=== PATIENT | female | born 1990 | race Hispanic/Latino ===

== ENCOUNTER 2020-10-18 09:25 | Emergency (ER) | payer MEDICARE ==
[~2020-10-18] VITALS: Ht 162.6 cm; Wt 86.2 kg
[2020-10-18] MEDS ORDERED: HYDROCODONE/APAP 10MG-325MG TAB PO ONE (09:45)
[2020-10-18] MEDS ORDERED: AUGMENTIN 875-1 EACH PO ×2 (09:46→10:06)
[2020-10-18] MEDS ORDERED: PERIDEX473 M1 PO (09:46)
[2020-10-18] MEDS ORDERED: ULTRAM50 MG PO ×2 (09:46→10:06)
== END 2020-10-18 10:05 | disposition home or self-care (01) ==
LOC: ER 09:39
DX: K04.7 Periapical abscess without sinus (principal); K02.9 Dental caries, unspecified; I10 Essential (primary) hypertension; E11.9 Type 2 diabetes mellitus without complications; E78.5 Hyperlipidemia, unspecified
CPT/HCPCS: 99283

== ENCOUNTER 2020-12-14 17:17 | Emergency (ER) | payer MEDICARE ==
[~2020-12-14] VITALS: Ht 165.1 cm; Wt 106.6 kg
[~2020-12-14 17:17] MED LIST: AUGMENTIN 875-1 EACH PO; PERIDEX473 M1 PO; ULTRAM50 MG PO
[2020-12-14] MEDS ORDERED: SODIUM CHLORIDE 0.9% 1000ML 1,000 ML IV STA (17:25)
[2020-12-14] MEDS ORDERED: ONDANSETRON HCL INJ 2MG/ML 2ML 2 MG/ML VIAL IV PRN (17:30)
[2020-12-14 18:02] LABS: BASOPHILS % 0.3 % (0.0-1.0); HEMATOCRIT 34.1 % (34.2-44.1); HEMOGLOBIN 11.6 g/dL (12.0-16.0); LYMPHOCYTES # (AUTO) 2.6 (1.0-3.2); LYMPHOCYTES % 22.3 % (18.0-39.1); MEAN CORPUSCULAR HEMOGLOBIN 27.8 pg (28-32); MEAN CORPUSCULAR VOLUME 81.8 fL (81-99); MONOCYTES # (AUTO) 0.5 (0.2-0.8); MONOCYTES % 4.4 % (4.4-11.3); NEUTROPHILS # (AUTO) 8.4 (2.1-6.9); NEUTROPHILS % 72.6 % (38.7-80.0); PLATELET COUNT 335 x10e3/uL (140-360); RED BLOOD COUNT 4.17 x10e6/uL (3.6-5.1); RED CELL DISTRIBUTION WIDTH 12.8 % (11.7-14.4)
[2020-12-14 18:04] LABS: CLARITY,URINE HAZY (CLEAR); COLOR,URINE YELLOW (YELLOW); LEUKOCYTE ESTERASE ,URINE NEGATIVE (NEGATIVE); NITRITE,URINE NEGATIVE (NEGATIVE)
[2020-12-14 18:05] LABS: KETONES,URINE NEGATIVE (NEGATIVE); PROTEIN,URINE DIPSTICK >=300 (NEGATIVE); URINE UROBILINOGEN 0.2 mg/dL (0.2 - 1)
[2020-12-14 18:11] LABS: ALBUMIN 2.7 g/dL (3.5-5.0); ALBUMIN/GLOBULIN RATIO 0.6 (0.8-2.0); ANION GAP 16.2 mmol/L (8-16); CALCIUM 8.1 mg/dL (8.4-10.2); CREATININE, SERUM 2.7 mg/dL (0.57-1.11); POTASSIUM 4.2 mmol/L (3.5-5.1)
[2020-12-14 18:13] LABS: BACTERIA,URINE FEW /HPF; EPITHELIAL CELLS,URINE FEW /LPF
[2020-12-14 18:14] LABS: AMORPHOUS SEDIMENT,URINE FEW (FEW); HYALINE CASTS 0-1 (0-1); MUCUS,URINE FEW (RARE)
[2020-12-14] MEDS ORDERED: LACTATED RINGER'S 1,000 ML INJ ONE (18:30)
[2020-12-14] MEDS ORDERED: INSULIN REGULAR, HUMAN 100 UNIT/1 ML 3ML VIAL IV ONE (18:30)
[2020-12-14] MEDS ORDERED: METOCLOPRAMIDE HCL 10 MG/2ML VIAL IV ONE (18:45)
[2020-12-14] MEDS ORDERED: ZUPLENZ4 MG PO (19:23)
[2020-12-14 19:56] VITALS: BP 164/79
== END 2020-12-14 19:40 | disposition home or self-care (01) ==
LOC: ER 17:25
DX: R11.2 Nausea with vomiting, unspecified (principal); R10.84 Generalized abdominal pain; E11.65 Type 2 diabetes mellitus with hyperglycemia; I12.9 Hypertensive chronic kidney disease with stage 1 through stage 4 chronic kidney disease, or unspecified chronic kidney disease; E11.22 Type 2 diabetes mellitus with diabetic chronic kidney disease; N18.9 Chronic kidney disease, unspecified; E78.5 Hyperlipidemia, unspecified
CPT/HCPCS: 36415; 80053; 81001; 82948; 83690; 84702; 85025; 99284; J1817; J2405; J7030; J7121

== ENCOUNTER 2021-01-26 10:38 | Inpatient (IN) | payer MEDICARE ==
[~2021-01-26] VITALS: Ht 167.6 cm; Wt 106.6 kg
[~2021-01-26 10:38] MED LIST changes: +ZUPLENZ4 MG PO
[2021-01-26] MEDS ORDERED: MORPHINE SULFATE INJ 2 MG/ML SYR IV STA (10:55)
[2021-01-26] MEDS ORDERED: SODIUM CHLORIDE 0.9% 1000ML 1,000 ML IV STA (10:55)
[2021-01-26] MEDS ORDERED: KETOROLAC TROMETHAMINE 30 MG/ML VIAL IV STA (10:55)
[2021-01-26] MEDS ORDERED: ONDANSETRON HCL INJ 2MG/ML 2ML 2 MG/ML VIAL IV STA (10:55)
[2021-01-26] MEDS ORDERED: VANCOMYCIN 1GM/NS 250 ML 250 ML IV ONE (11:00)
[2021-01-26] MEDS ORDERED: PIPERACILLIN/TAZOBACTAM 2.25 GM in SODIUM CHLORIDE 0.9% 50ML 50 ML IV ONE (11:06)
[2021-01-26 11:12] LABS: BASOPHILS # (AUTO) 0.1 (0.0-0.1); BASOPHILS % 0.3 % (0.0-1.0); EOSINOPHILS # (AUTO) 0.1 (0.0-0.4); EOSINOPHILS % 0.8 % (0.0-6.0); HEMATOCRIT 37.8 % (34.2-44.1); HEMOGLOBIN 12.4 g/dL (12.0-16.0); LYMPHOCYTES # (AUTO) 2.3 (1.0-3.2); MEAN CORPUSCULAR HEMOGLOBIN 27.9 pg (28-32); MEAN CORPUSCULAR HGB CONC 32.8 g/dL (31-35); MEAN CORPUSCULAR VOLUME 85.1 fL (81-99); MONOCYTES % 6.5 % (4.4-11.3); NEUTROPHILS # (AUTO) 11.6 (2.1-6.9); NEUTROPHILS % 76.9 % (38.7-80.0); PLATELET COUNT 401 x10e3/uL (140-360); RED BLOOD COUNT 4.44 x10e6/uL (3.6-5.1); RED CELL DISTRIBUTION WIDTH 12.6 % (11.7-14.4)
[2021-01-26 11:25] LABS: INR 0.95; PARTIAL THROMBOPLASTIN TIME 31.6 seconds (23.8-35.5); PROTHROMBIN TIME 13.3 seconds (11.9-14.5)
[2021-01-26 11:32] LABS: ALANINE AMINOTRANSFERASE 9 IU/L (0-55); ALBUMIN 2.5 g/dL (3.5-5.0); ALBUMIN/GLOBULIN RATIO 0.5 (0.8-2.0); ALKALINE PHOSPHATASE 91 IU/L (40-150); ANION GAP 15.8 mmol/L (8-16); BLOOD UREA NITROGEN 24 mg/dL (7-26); BUN/CREATININE RATIO 9 (6-25); CALCIUM 8.1 mg/dL (8.4-10.2); CARBON DIOXIDE 22 mmol/L (22-29); CHLORIDE 106 mmol/L (98-107); CREATININE, SERUM 2.69 mg/dL (0.57-1.11); EST GLOMERULAR FILTRATION RATE 21 ML/MIN (60-); GLUCOSE 148 mg/dL (74-118); MAGNESIUM 1.8 MG/DL (1.3-2.1); POTASSIUM 4.8 mmol/L (3.5-5.1); SODIUM 139 mmol/L (136-145)
[2021-01-26] MEDS ORDERED: VANCOMYCIN 1GM/NS 250 ML 250 ML ONE (11:51)
[2021-01-26] MEDS ORDERED: ATORVASTATIN CA10 MG PO (12:14)
[2021-01-26] MEDS ORDERED: VASCEPA1 GM PO (12:14)
[2021-01-26] MEDS ORDERED: SERTRALINE HCL100 MG PO (12:14)
[2021-01-26] MEDS ORDERED: ISOSORBIDE MONO30 MG PO (12:14)
[2021-01-26] MEDS ORDERED: VICTOZA 2-0.6 MG/0.1 (12:14)
[2021-01-26] MEDS ORDERED: ONDANSETRON ODT4 MG PO (12:14)
[2021-01-26] MEDS ORDERED: AZELASTINE HCL6 ML OD (12:14)
[2021-01-26] MEDS ORDERED: HYDRALAZINE HC100 MG PO (12:14)
[2021-01-26] MEDS ORDERED: CARVEDILOL6.25 MG PO (12:14)
[2021-01-26] MEDS ORDERED: DEXTROSE 50% SYRINGE 50 ML IV PRN (13:30)
[2021-01-26] MEDS ORDERED: CLONIDINE HCL 0.1 MG TAB ONE (13:48)
[2021-01-26] MEDS: SODIUM CHLORIDE 0.9% 1000ML 1,000 ML IV SCH (13:49)
[2021-01-26 13:58] VITALS: BP 155/111
[2021-01-26] MEDS ORDERED: CLONIDINE HCL 0.1 MG TAB PO ONE (14:00)
[2021-01-26 14:10] VITALS: BP 181/107
[2021-01-26 14:19] VITALS: BP 181/107
[2021-01-26] MEDS: INSULIN LISPRO 100 UNIT/1 ML 3ML VIAL SQ SCH ×2 (17:39→21:00)
[2021-01-26] MEDS ORDERED: PIPERACILLIN/TAZO 2.25 GM 50 ML IV SCH (18:00)
[2021-01-26] MEDS ORDERED: SODIUM CHLORIDE 0.9% 50ML 50 ML ONE (18:37)
[2021-01-26] MEDS: MORPHINE SULFATE INJ 4 MG/ML INJ 1ML IV PRN (19:36)
[2021-01-26] MEDS: ONDANSETRON HCL INJ 2MG/ML 2ML 2 MG/ML VIAL IV PRN (19:38)
[2021-01-26 20:01] VITALS: BP 130/71
[2021-01-26 20:30] VITALS: BP 130/71
[2021-01-26] MEDS ORDERED: PIPERACILLIN/TAZOBACTAM 2.25 GM in SODIUM CHLORIDE 0.9% 50ML 50 ML IV STA (22:52)
[2021-01-27] VITALS (8 sets, daily range): BP systolic 120–176; BP diastolic 58–95
[2021-01-27] MEDS: SODIUM CHLORIDE 0.9% 1000ML 1,000 ML IV SCH ×3 (02:50→22:17)
[2021-01-27] MEDS: MORPHINE SULFATE INJ 4 MG/ML INJ 1ML IV PRN ×5 (04:05→22:17)
[2021-01-27] MEDS: ONDANSETRON HCL INJ 2MG/ML 2ML 2 MG/ML VIAL IV PRN ×5 (04:06→22:17)
[2021-01-27] MEDS: PIPERACILLIN/TAZOBACTAM 2.25 GM in SODIUM CHLORIDE 0.9% 50ML 50 ML IV SCH ×6 (06:00→23:20)
[2021-01-27 06:14] LABS: BASOPHILS % 0.2 % (0.0-1.0); EOSINOPHILS # (AUTO) 0.2 (0.0-0.4); EOSINOPHILS % 1.1 % (0.0-6.0); HEMOGLOBIN 9.9 g/dL (12.0-16.0); LYMPHOCYTES # (AUTO) 2.1 (1.0-3.2); LYMPHOCYTES % 13.2 % (18.0-39.1); MEAN CORPUSCULAR HEMOGLOBIN 28.6 pg (28-32); MEAN CORPUSCULAR HGB CONC 34.1 g/dL (31-35); MEAN CORPUSCULAR VOLUME 83.8 fL (81-99); MONOCYTES # (AUTO) 1.2 (0.2-0.8); MONOCYTES % 7.2 % (4.4-11.3); NEUTROPHILS # (AUTO) 12.5 (2.1-6.9); NEUTROPHILS % 77.7 % (38.7-80.0); PLATELET COUNT 296 x10e3/uL (140-360); RED BLOOD COUNT 3.46 x10e6/uL (3.6-5.1); RED CELL DISTRIBUTION WIDTH 12.3 % (11.7-14.4)
[2021-01-27 06:33] LABS: ALBUMIN 1.9 g/dL (3.5-5.0); ALBUMIN/GLOBULIN RATIO 0.5 (0.8-2.0); ANION GAP 11.7 mmol/L (8-16); CALCIUM 7.1 mg/dL (8.4-10.2); CREATININE, SERUM 2.73 mg/dL (0.57-1.11); POTASSIUM 4.7 mmol/L (3.5-5.1)
[2021-01-27] MEDS ORDERED: ONDANSETRON HCL INJ 2MG/ML 2ML 2 MG/ML VIAL IV PRN (09:30)
[2021-01-27] MEDS ORDERED: HYDROCODONE/APAP 10MG-325MG TAB PO PRN (09:30)
[2021-01-27] MEDS ORDERED: HYDRALAZINE HCL 20 MG/ML VIAL IV PRN (09:30)
[2021-01-27] MEDS ORDERED: VANCOMYCIN 1GM/NS 250 ML 250 ML IV ONE (09:30)
[2021-01-27] MEDS: INSULIN LISPRO 100 UNIT/1 ML 3ML VIAL SQ SCH ×4 (09:48→21:13)
[2021-01-27] MEDS: ISOSORBIDE MONONITRATE 30 MG TAB CR PO SCH (10:57)
[2021-01-27] MEDS: HYDRALAZINE HCL 100 MG TABLET PO SCH ×2 (10:58→17:18)
[2021-01-27] MEDS ORDERED: ONDANSETRON HCL INJ 2MG/ML 2ML 2 MG/ML VIAL ONE (13:57)
[2021-01-27] MEDS ORDERED: POVIDONE IODINE 0.05% 0.05 % ML PO ONE (13:57)
[2021-01-27] MEDS ORDERED: PROPOFOL IV EMULSION 10 MG/ML 20 ML VIAL ONE (13:57)
[2021-01-27] MEDS ORDERED: SEVOFLURANE INHAL SOLN 250 ML PEN BTL ONE (13:57)
[2021-01-27] MEDS ORDERED: FENTANYL CITRATE/PF 100MCG/2 ML INJ ONE (14:15)
[2021-01-27] MEDS ORDERED: BUPIVACAINE HCL 0.5% INJ 30 ML VIAL INJ ONE (16:22)
[2021-01-27] MEDS: CARVEDILOL 3.125 MG TAB PO SCH (17:22)
[2021-01-27] MEDS ORDERED: ACETAMINOPHEN 325 MG TAB PO PRN (20:45)
[2021-01-27] MEDS: ATORVASTATIN 10 MG TAB PO SCH (21:08)
[2021-01-28] VITALS (8 sets, daily range): BP systolic 117–182; BP diastolic 60–93
[2021-01-28] MEDS: HYDRALAZINE HCL 100 MG TABLET PO SCH ×3 (01:42→17:20)
[2021-01-28] MEDS: PIPERACILLIN/TAZOBACTAM 2.25 GM in SODIUM CHLORIDE 0.9% 50ML 50 ML IV SCH ×4 (05:24→23:15)
[2021-01-28 06:19] LABS: BASOPHILS % 0.3 % (0.0-1.0); EOSINOPHILS # (AUTO) 0.2 (0.0-0.4); EOSINOPHILS % 1.3 % (0.0-6.0); HEMOGLOBIN 10.1 g/dL (12.0-16.0); LYMPHOCYTES # (AUTO) 2.3 (1.0-3.2); LYMPHOCYTES % 19.2 % (18.0-39.1); MEAN CORPUSCULAR HEMOGLOBIN 28.5 pg (28-32); MEAN CORPUSCULAR HGB CONC 33.7 g/dL (31-35); MEAN CORPUSCULAR VOLUME 84.5 fL (81-99); MONOCYTES # (AUTO) 0.9 (0.2-0.8); MONOCYTES % 7.7 % (4.4-11.3); NEUTROPHILS # (AUTO) 8.6 (2.1-6.9); NEUTROPHILS % 71.2 % (38.7-80.0); PLATELET COUNT 274 x10e3/uL (140-360); RED BLOOD COUNT 3.55 x10e6/uL (3.6-5.1); RED CELL DISTRIBUTION WIDTH 12.2 % (11.7-14.4)
[2021-01-28 06:45] LABS: ANION GAP 13.7 mmol/L (8-16); CALCIUM 7.4 mg/dL (8.4-10.2); CREATININE, SERUM 2.72 mg/dL (0.57-1.11); POTASSIUM 4.7 mmol/L (3.5-5.1)
[2021-01-28] MEDS: AZELASTINE HCL(OPTH) 6 ML BOTTLE OP SCH ×2 (09:00→17:27)
[2021-01-28] MEDS: ISOSORBIDE MONONITRATE 30 MG TAB CR PO SCH (09:39)
[2021-01-28] MEDS: SERTRALINE HCL 100 MG TAB PO SCH (09:39)
[2021-01-28] MEDS: CARVEDILOL 3.125 MG TAB PO SCH ×2 (09:40→17:21)
[2021-01-28] MEDS ORDERED: VANCOMYCIN 1GM/NS 250 ML 250 ML IV ONE (09:45)
[2021-01-28] MEDS: INSULIN LISPRO 100 UNIT/1 ML 3ML VIAL SQ SCH ×4 (09:45→21:56)
[2021-01-28] MEDS: MORPHINE SULFATE INJ 4 MG/ML INJ 1ML IV PRN ×2 (09:50→18:03)
[2021-01-28] MEDS: ONDANSETRON HCL INJ 2MG/ML 2ML 2 MG/ML VIAL IV PRN (09:50)
[2021-01-28] MEDS: ATORVASTATIN 10 MG TAB PO SCH (21:25)
[2021-01-29] VITALS: BP 142/82
[2021-01-29] MEDS: HYDRALAZINE HCL 100 MG TABLET PO SCH (01:32)
[2021-01-29 04:00] VITALS: BP 137/64
[2021-01-29] MEDS: PIPERACILLIN/TAZOBACTAM 2.25 GM in SODIUM CHLORIDE 0.9% 50ML 50 ML IV SCH (05:10)
[2021-01-29 06:05] LABS: BASOPHILS % 0.3 % (0.0-1.0); EOSINOPHILS # (AUTO) 0.1 (0.0-0.4); EOSINOPHILS % 1.6 % (0.0-6.0); HEMATOCRIT 26.5 % (34.2-44.1); LYMPHOCYTES # (AUTO) 1.8 (1.0-3.2); MEAN CORPUSCULAR HEMOGLOBIN 28.1 pg (28-32); MEAN CORPUSCULAR VOLUME 82.8 fL (81-99); MONOCYTES # (AUTO) 0.7 (0.2-0.8); MONOCYTES % 7.7 % (4.4-11.3); NEUTROPHILS # (AUTO) 5.9 (2.1-6.9); NEUTROPHILS % 68.9 % (38.7-80.0); PLATELET COUNT 291 x10e3/uL (140-360); RED CELL DISTRIBUTION WIDTH 12.1 % (11.7-14.4)
[2021-01-29 06:25] LABS: ANION GAP 12.2 mmol/L (8-16); CALCIUM 7.4 mg/dL (8.4-10.2); CREATININE, SERUM 2.69 mg/dL (0.57-1.11); POTASSIUM 4.2 mmol/L (3.5-5.1)
[2021-01-29 07:52] VITALS: BP 135/66
[2021-01-29] MEDS: CARVEDILOL 3.125 MG TAB PO SCH (08:33)
[2021-01-29] MEDS: SERTRALINE HCL 100 MG TAB PO SCH (08:34)
[2021-01-29] MEDS: ISOSORBIDE MONONITRATE 30 MG TAB CR PO SCH (08:34)
[2021-01-29] MEDS: AZELASTINE HCL(OPTH) 6 ML BOTTLE OP SCH (08:37)
[2021-01-29 09:04] VITALS: BP 135/66
== END 2021-01-29 10:56 | disposition home or self-care (01) | DRG 580 ==
LOC: ER 10:52 → ERHOLD 13:16 → MED/SURG3 15:13
PROVIDERS: ADMIT Internal Medicine; ATTEND Internal Medicine
PROC: 0J980ZZ Drainage of Abdomen Subcutaneous Tissue and Fascia, Open Approach (ICD-10-PCS; principal; 2021-01-27 16:14)
DX: L02.211 Cutaneous abscess of abdominal wall (principal); N18.4 Chronic kidney disease, stage 4 (severe); E11.22 Type 2 diabetes mellitus with diabetic chronic kidney disease; Z20.822 Contact with and (suspected) exposure to COVID-19; I12.9 Hypertensive chronic kidney disease with stage 1 through stage 4 chronic kidney disease, or unspecified chronic kidney disease; E66.01 Morbid (severe) obesity due to excess calories; Z68.37 Body mass index [BMI] 37.0-37.9, adult
CPT/HCPCS: 36415; 74176; 80048; 80053; 80202; 82948; 83605; 83735; 84702; 85025; 85610; 85730; 87040; 87071; 87075; 87205; 96361; 99284; J0360; J1885; J2270; J2405; J2543; J3010; J3370; J7030; U0002

== ENCOUNTER 2021-03-25 23:02 | Observation (INO) | payer MEDICARE ==
[~2021-03-25] VITALS: Ht 165.1 cm; Wt 106.6 kg
[~2021-03-25 23:02] MED LIST changes: +ATORVASTATIN CA10 MG PO; +AZELASTINE HCL6 ML OD; +CARVEDILOL6.25 MG PO; +HYDRALAZINE HC100 MG PO; +ISOSORBIDE MONO30 MG PO; +ONDANSETRON ODT4 MG PO; +SERTRALINE HCL100 MG PO; +VASCEPA1 GM PO; +VICTOZA 2-0.6 MG/0.1
[2021-03-25] MEDS ORDERED: ONDANSETRON HCL INJ 2MG/ML 2ML 2 MG/ML VIAL IV STA (23:16)
[2021-03-25] MEDS ORDERED: SODIUM CHLORIDE 0.9% 1000ML 1,000 ML ONE (23:28)
[2021-03-25] MEDS ORDERED: ONDANSETRON HCL INJ 2MG/ML 2ML 2 MG/ML VIAL ONE (23:28)
[2021-03-25] MEDS ORDERED: SODIUM CHLORIDE 0.9% 1000ML 1,000 ML IV ONE (23:30)
[2021-03-25 23:37] LABS: BASOPHILS % 0.3 % (0.0-1.0); EOSINOPHILS % 0.3 % (0.0-6.0); HEMATOCRIT 37.6 % (34.2-44.1); HEMOGLOBIN 12.5 g/dL (12.0-16.0); LYMPHOCYTES # (AUTO) 1.9 (1.0-3.2); LYMPHOCYTES % 14.8 % (18.0-39.1); MEAN CORPUSCULAR HEMOGLOBIN 27.8 pg (28-32); MEAN CORPUSCULAR HGB CONC 33.2 g/dL (31-35); MEAN CORPUSCULAR VOLUME 83.7 fL (81-99); MONOCYTES # (AUTO) 0.5 (0.2-0.8); MONOCYTES % 3.7 % (4.4-11.3); NEUTROPHILS # (AUTO) 10.4 (2.1-6.9); NEUTROPHILS % 80.5 % (38.7-80.0); PLATELET COUNT 420 x10e3/uL (140-360); RED BLOOD COUNT 4.49 x10e6/uL (3.6-5.1); RED CELL DISTRIBUTION WIDTH 13.4 % (11.7-14.4)
[2021-03-25 23:50] LABS: ALBUMIN 3.4 g/dL (3.5-5.0); ALBUMIN/GLOBULIN RATIO 0.7 (0.8-2.0); ANION GAP 18.6 mmol/L (8-16); CREATININE, SERUM 2.92 mg/dL (0.57-1.11); POTASSIUM 4.6 mmol/L (3.5-5.1)
[2021-03-26] LABS: CALCIUM 9.1 mg/dL (8.4-10.2)
[2021-03-26 00:10] LABS: AMYLASE 104 U/L (25-125); LIPASE 46 U/L (8-78)
[2021-03-26 00:46] LABS: CLARITY,URINE CLEAR (CLEAR); COLOR,URINE YELLOW (YELLOW); KETONES,URINE 1+ (NEGATIVE); LEUKOCYTE ESTERASE ,URINE NEGATIVE (NEGATIVE); NITRITE,URINE NEGATIVE (NEGATIVE); PROTEIN,URINE DIPSTICK >=300 (NEGATIVE); URINE UROBILINOGEN 0.2 mg/dL (0.2 - 1)
[2021-03-26 00:54] LABS: BACTERIA,URINE MANY /HPF; EPITHELIAL CELLS,URINE MODERATE /LPF; WBC,URINE (MAN) 0-5 /HPF (0-5)
[2021-03-26] MEDS ORDERED: DEXTROSE 50% SYRINGE 50 ML IV PRN (01:00)
[2021-03-26] MEDS ORDERED: ONDANSETRON HCL INJ 2MG/ML 2ML 2 MG/ML VIAL IV PRN (01:00)
[2021-03-26] MEDS: SODIUM CHLORIDE 0.9% 1000ML 1,000 ML IV SCH ×2 (01:10→11:09)
[2021-03-26] MEDS ORDERED: HYDRALAZINE HCL 20 MG/ML VIAL ONE (01:33)
[2021-03-26] MEDS: HYDRALAZINE HCL 20 MG/ML VIAL IV PRN ×3 (01:35→08:45)
[2021-03-26] MEDS ORDERED: PROMETHAZINE HCL (IM) 25 MG/ML VIAL IM ONE ×2 (02:00)
[2021-03-26] MEDS: METOCLOPRAMIDE HCL 10 MG/2ML VIAL IV SCH ×2 (02:30→12:57)
[2021-03-26] MEDS ORDERED: HYDRALAZINE HCL 20 MG/ML VIAL IV STA (03:14)
[2021-03-26 03:42] VITALS: BP 194/71
[2021-03-26 04:00] VITALS: BP 194/71
[2021-03-26] MEDS: INSULIN REGULAR, HUMAN 100 UNIT/1 ML 3ML VIAL SQ SCH ×3 (07:30→16:07)
[2021-03-26 08:26] VITALS: BP 186/95
[2021-03-26 09:00] VITALS: BP 186/95
[2021-03-26 12:11] VITALS: BP 145/55
[2021-03-26 16:45] VITALS: BP 187/80
== END 2021-03-26 18:54 | disposition home or self-care (01) ==
LOC: ER 23:30 → ERHOLD 03-26 00:58 → MED/SURG2 03-26 03:47
PROVIDERS: ADMIT Internal Medicine; ATTEND Internal Medicine
DX: K52.9 Noninfective gastroenteritis and colitis, unspecified (principal); E11.22 Type 2 diabetes mellitus with diabetic chronic kidney disease; I12.9 Hypertensive chronic kidney disease with stage 1 through stage 4 chronic kidney disease, or unspecified chronic kidney disease; N18.30 Chronic kidney disease, stage 3 unspecified; E66.9 Obesity, unspecified; Z68.39 Body mass index [BMI] 39.0-39.9, adult; H54.8 Legal blindness, as defined in USA
CPT/HCPCS: 36415 ×2; 80053; 81001; 81025; 82150; 82948; 83690; 85025; 96360; 96361; 99284; G0378; J0360; J2405 ×2; J2550; J2765; J7030 ×2

== ENCOUNTER 2022-10-25 12:01 | Emergency (ER) | payer MEDICARE ==
[~2022-10-25] VITALS: Ht 165.1 cm; Wt 106.6 kg
[2022-10-25] MEDS ORDERED: HYDROCODONE/APAP 5MG-325MG TAB PO ONE (12:45)
[2022-10-25] MEDS ORDERED: LIDOCAINE HCL 1% LOCAL INJ 20 ML VIAL INJ ONE (12:45)
[2022-10-25] MEDS ORDERED: BACTRIM DS TAB1 EACH PO (13:11)
[2022-10-25] MEDS ORDERED: CEPHALEXIN500 MG PO (13:11)
== END 2022-10-25 13:26 | disposition home or self-care (01) ==
LOC: ER 12:08
DX: L02.214 Cutaneous abscess of groin (principal); E11.22 Type 2 diabetes mellitus with diabetic chronic kidney disease; I12.9 Hypertensive chronic kidney disease with stage 1 through stage 4 chronic kidney disease, or unspecified chronic kidney disease; N18.9 Chronic kidney disease, unspecified; H54.8 Legal blindness, as defined in USA
CPT/HCPCS: 10060; 99283; J2001

== ENCOUNTER 2025-01-26 13:12 | Inpatient (IN) | payer MEDICARE ==
[~2025-01-26] VITALS: Ht 167.6 cm; Wt 96.2 kg
[~2025-01-26 13:12] MED LIST changes: +BACTRIM DS TAB1 EACH PO; +CEPHALEXIN500 MG PO
[2025-01-26 13:53] LABS: BASOPHILS % 0.3 % (0.0-1.0); EOSINOPHILS # (AUTO) 0.1 (0.0-0.4); EOSINOPHILS % 0.8 % (0.0-6.0); HEMATOCRIT 38.5 % (34.2-44.1); LYMPHOCYTES # (AUTO) 1.7 (1.0-3.2); LYMPHOCYTES % 17.8 % (18.0-39.1); MEAN CORPUSCULAR HEMOGLOBIN 31.6 pg (28-32); MEAN CORPUSCULAR HGB CONC 33.8 g/dL (31-35); MEAN CORPUSCULAR VOLUME 93.4 fL (81-99); MONOCYTES # (AUTO) 0.4 (0.2-0.8); MONOCYTES % 4.1 % (4.4-11.3); NEUTROPHILS # (AUTO) 7.1 (2.1-6.9); NEUTROPHILS % 76.7 % (38.7-80.0); PLATELET COUNT 258 x10e3/uL (140-360); RED BLOOD COUNT 4.12 x10e6/uL (3.6-5.1); RED CELL DISTRIBUTION WIDTH 12.6 % (11.7-14.4); WHITE BLOOD COUNT 9.29 x10e3/uL (4.8-10.8)
[2025-01-26 14:10] LABS: INR 0.94; PROTHROMBIN TIME 13.2 seconds (11.9-14.5)
[2025-01-26 14:11] LABS: PARTIAL THROMBOPLASTIN TIME 28.7 seconds (23.8-35.5)
[2025-01-26 14:15] LABS: CLARITY,URINE CLOUDY (CLEAR); COLOR,URINE YELLOW (YELLOW)
[2025-01-26 14:16] LABS: BILIRUBIN,URINE NEGATIVE (NEGATIVE); GLUCOSE, URINE NEGATIVE (NEGATIVE); KETONES,URINE NEGATIVE (NEGATIVE); LEUKOCYTE ESTERASE ,URINE MODERATE (NEGATIVE); NITRITE,URINE NEGATIVE (NEGATIVE); PH,URINE 7 (5 - 7); PROTEIN,URINE DIPSTICK >=300 (NEGATIVE); URINE UROBILINOGEN 0.2 mg/dL (0.2 - 1)
[2025-01-26 14:18] LABS: ALANINE AMINOTRANSFERASE 16 IU/L (0-55); ALBUMIN 3.6 g/dL (3.5-5.0); ALBUMIN/GLOBULIN RATIO 0.8 (0.8-2.0); ALKALINE PHOSPHATASE 78 IU/L (40-150); BILIRUBIN,TOTAL 0.5 mg/dL (0.2-1.2); BLOOD UREA NITROGEN 41 mg/dL (7-26); BUN/CREATININE RATIO 9 (6-25); CALCIUM 8.9 mg/dL (8.4-10.2); CARBON DIOXIDE 18 mmol/L (22-29); CHLORIDE 109 mmol/L (98-107); CREATINE KINASE 36 IU/L (29-168); CREATININE, SERUM 4.73 mg/dL (0.57-1.11); EST GLOMERULAR FILTRATION RATE 12 ML/MIN (>=60); GLUCOSE 207 mg/dL (74-118); MAGNESIUM 1.8 MG/DL (1.3-2.1); SODIUM 136 mmol/L (136-145); TOTAL PROTEIN 8.1 g/dL (6.5-8.1)
[2025-01-26 14:23] LABS: TROPONIN I 0.003 ng/mL (0-0.300)
[2025-01-26 14:31] LABS: BACTERIA,URINE MANY /HPF; EPITHELIAL CELLS,URINE MANY /LPF; WBC,URINE (MAN) >50 /HPF (0-5)
[2025-01-26] MEDS: INSULIN REGULAR, HUMAN 100 UNIT/1 ML IV ONE (14:51)
[2025-01-26] MEDS: DEXTROSE 50% SYRINGE 50 ML IV STA (14:52)
[2025-01-26] MEDS: SODIUM BICARBONATE 8.4% INJ 50 ML SYR IV STA (14:52)
[2025-01-26] MEDS: CALCIUM GLUC 1 G/50 ML NACL 50 ML IV ONE (14:52)
[2025-01-26] MEDS ORDERED: ONDANSETRON HCL INJ 2MG/ML 2ML 2 MG/ML VIAL IV PRN (15:30)
[2025-01-26] MEDS: SOD POLYSTYRENE SULFONATE SUSP 15 GM/60 ML BTL PO ONE (15:45)
[2025-01-26] MEDS: CEFTRIAXONE 2 GM in SODIUM CHLORIDE 0.9% 100 ML IV ONE (15:45)
[2025-01-26 15:55] VITALS: PULSE 94; RESP 15; TEMP 98.6
[2025-01-26 16:15] VITALS: BP 151/91; PULSE 88; RESP 18; TEMP 98.6; O2SAT 100
[2025-01-26] MEDS ORDERED: DEXTROSE 50% SYRINGE 50 ML IV PRN (16:30)
[2025-01-26] MEDS: Vancomycin IV 1 GM in SODIUM CHLORIDE 0.9% 250ML 250 ML IV ONE (17:35)
[2025-01-26] MEDS: NIFEDIPINE CR 30 MG TAB PO ONE (17:55)
[2025-01-26] MEDS: FUROSEMIDE INJ 10 MG/ML 4 ML VIAL IV ONE (17:56)
[2025-01-26 20:00] VITALS: BP 164/98; PULSE 94; RESP 18; TEMP 97.8; O2SAT 100
[2025-01-26] MEDS ORDERED: RAYALDEE30 MCG PO (20:22)
[2025-01-26] MEDS ORDERED: LOSARTAN POTAS100 MG PO (20:23)
[2025-01-26] MEDS ORDERED: MINOCYCLINE HCL50 MG PO (20:23)
[2025-01-26] MEDS ORDERED: LEVOTHYROXINE50 MC1 PO (20:26)
[2025-01-26] MEDS ORDERED: ACYCLOVIR200 MG PO (20:28)
[2025-01-26] MEDS ORDERED: PROTONIX20 MG PO (20:29)
[2025-01-26] MEDS ORDERED: SODIUM BICARBO650 MG PO (20:30)
[2025-01-26] MEDS ORDERED: ATIVAN0.5 MG PO (20:33)
[2025-01-26] MEDS ORDERED: COREG12.5 MG PO (20:36)
[2025-01-26] MEDS ORDERED: OZEMPIC0.25 MG/02 SQ (20:40)
[2025-01-26 23:49] LABS: CREATINE KINASE 40 IU/L (29-168)
[2025-01-26 23:58] LABS: TROPONIN I < 0.001 ng/mL (0-0.300)
[2025-01-27] VITALS (8 sets, daily range): BP systolic 113–133; BP diastolic 70–87; PULSE 70–105; RESP 18; TEMP 97.8–98.7; O2SAT 98–100
[2025-01-27 08:49] LABS: BASOPHILS % 0.4 % (0.0-1.0); EOSINOPHILS # (AUTO) 0.1 (0.0-0.4); EOSINOPHILS % 1.2 % (0.0-6.0); HEMATOCRIT 38.1 % (34.2-44.1); HEMOGLOBIN 12.8 g/dL (12.0-16.0); LYMPHOCYTES # (AUTO) 2.5 (1.0-3.2); LYMPHOCYTES % 24.7 % (18.0-39.1); MEAN CORPUSCULAR HEMOGLOBIN 31.3 pg (28-32); MEAN CORPUSCULAR HGB CONC 33.6 g/dL (31-35); MEAN CORPUSCULAR VOLUME 93.2 fL (81-99); MONOCYTES # (AUTO) 0.7 (0.2-0.8); MONOCYTES % 6.7 % (4.4-11.3); NEUTROPHILS # (AUTO) 6.6 (2.1-6.9); NEUTROPHILS % 66.5 % (38.7-80.0); PLATELET COUNT 246 x10e3/uL (140-360); RED BLOOD COUNT 4.09 x10e6/uL (3.6-5.1); RED CELL DISTRIBUTION WIDTH 12.6 % (11.7-14.4); WHITE BLOOD COUNT 9.91 x10e3/uL (4.8-10.8)
[2025-01-27 09:19] LABS: ALBUMIN 3.4 g/dL (3.5-5.0); ALBUMIN/GLOBULIN RATIO 0.8 (0.8-2.0); ANION GAP 17.6 mmol/L (8-16); BILIRUBIN,TOTAL 0.3 mg/dL (0.2-1.2); CALCIUM 8.5 mg/dL (8.4-10.2); CREATININE, SERUM 4.79 mg/dL (0.57-1.11); POTASSIUM 4.6 mmol/L (3.5-5.1); TOTAL PROTEIN 7.5 g/dL (6.5-8.1)
[2025-01-27] MEDS: SODIUM BICARBONATE 650 MG TAB PO SCH (09:21)
[2025-01-27] MEDS: NIFEDIPINE CR 30 MG TAB PO SCH (09:21)
[2025-01-27 09:25] LABS: TROPONIN I 0.005 ng/mL (0-0.300)
[2025-01-27] MEDS ORDERED: HYDRALAZINE HCL 20 MG/ML VIAL IV PRN (14:45)
[2025-01-27] MEDS ORDERED: DEXTROSE 50% SYRINGE 50 ML IV PRN (14:45)
[2025-01-27] MEDS: LEVOTHYROXINE SODIUM 50 MCG TAB PO SCH (15:36)
[2025-01-27] MEDS: INSULIN LISPRO 100 UNIT/1 ML 3ML VIAL SQ SCH (16:30)
[2025-01-27] MEDS: ACYCLOVIR 200 MG CAP PO SCH (17:21)
[2025-01-27] MEDS: CARVEDILOL 12.5 MG TAB PO SCH (21:55)
[2025-01-27] MEDS: ATORVASTATIN 10 MG TAB PO SCH (21:55)
[2025-01-27] MEDS: LORAZEPAM 1 MG TAB PO PRN (22:00)
[2025-01-28 04:00] VITALS: BP 122/81; PULSE 102; RESP 18; TEMP 97.8; O2SAT 100
[2025-01-28] MEDS ORDERED: ACYCLOVIR 200 MG CAP PO SCH (04:00)
[2025-01-28 07:46] VITALS: BP 116/80; PULSE 101; RESP 18; TEMP 97.9; O2SAT 100
[2025-01-28 07:50] VITALS: BP 116/80; PULSE 101; RESP 18; TEMP 97.9; O2SAT 100
[2025-01-28] MEDS: PANTOPRAZOLE SOD 40 MG TABEC PO SCH (08:37)
[2025-01-28 08:38] LABS: ANION GAP 18.5 mmol/L (8-16); CALCIUM 8.4 mg/dL (8.4-10.2); CREATININE, SERUM 4.91 mg/dL (0.57-1.11); POTASSIUM 4.5 mmol/L (3.5-5.1)
[2025-01-28 08:58] LABS: MAGNESIUM 1.7 MG/DL (1.3-2.1); PHOSPHORUS 5.6 MG/DL (2.3-4.7)
[2025-01-28 09:18] LABS: THYROID STIMULATING HORMONE 2.695 uIU/mL (0.350-4.940)
[2025-01-28 11:32] VITALS: BP 125/78; PULSE 103; RESP 17; TEMP 97.6; O2SAT 100
[2025-01-28 15:53] VITALS: BP 135/90; PULSE 100; RESP 16; TEMP 97.2; O2SAT 100
[2025-01-28] MEDS: ACYCLOVIR 200 MG CAP PO SCH (16:55)
[2025-01-28 20:00] VITALS: BP 138/81; PULSE 97; RESP 18; TEMP 98.1; O2SAT 100
[2025-01-29 00:14] VITALS: BP 138/81; PULSE 97; RESP 18; TEMP 98.1; O2SAT 100
[2025-01-29 00:45] VITALS: BP 118/59; PULSE 89; RESP 18; TEMP 96.1; O2SAT 100
[2025-01-29 04:00] VITALS: BP 131/84; PULSE 96; RESP 18; TEMP 98.3; O2SAT 100
[2025-01-29 08:00] VITALS: BP 131/74; PULSE 92; RESP 18; TEMP 98.7; O2SAT 100
[2025-01-29 11:00] VITALS: BP 131/74; PULSE 92; RESP 18; TEMP 98.7; O2SAT 100
== END 2025-01-29 11:15 | disposition home or self-care (01) | DRG 690 ==
LOC: ER 13:36 → ERHOLD 15:29 → MED/SURG 16:16
PROVIDERS: ADMIT Internal Medicine; ATTEND Internal Medicine
DX: N39.0 Urinary tract infection, site not specified (principal); I12.0 Hypertensive chronic kidney disease with stage 5 chronic kidney disease or end stage renal disease; N18.5 Chronic kidney disease, stage 5; E87.5 Hyperkalemia; B96.20 Unspecified Escherichia coli [E. coli] as the cause of diseases classified elsewhere; E11.22 Type 2 diabetes mellitus with diabetic chronic kidney disease; E86.0 Dehydration; M54.2 Cervicalgia; Z79.899 Other long term (current) drug therapy
CPT/HCPCS: 36415; 71045; 80048; 80053; 81001; 82550; 82948; 83735; 83880; 84100; 84443; 84484; 84702; 85025; 85610; 85730; 87086; 87186; 93005; 99284; J0692; J0696; J1938; J2470; J7050; J7799